=== PATIENT | female | born 1985 | race Caucasian/White ===

== ENCOUNTER 2018-09-29 13:05 | Emergency (ER) | payer MEDICAID ==
[~2018-09-29] VITALS: Ht 162.6 cm; Wt 79.4 kg
[~2018-09-29 13:05] MED LIST: ALBU6.7H INH; CYCL-1 PO; IBUP-1051 PO; IBUP-1984 PO; METH4TAB3 PO; NO HOME MEDS
[2018-09-29 13:14] VITALS: BP 123/77
[2018-09-29] MEDS ORDERED: ALBU18HF2 INH (13:36)
[2018-09-29] MEDS ORDERED: GUAI1TBM19 PO (13:36)
[2018-09-29] MEDS ORDERED: DEC4T PO (13:36)
== END 2018-09-29 13:48 | disposition home or self-care (01) ==
LOC: ER 13:05
DX: J06.9 Acute upper respiratory infection, unspecified (principal); R51 Headache; F17.200 Nicotine dependence, unspecified, uncomplicated; Z79.899 Other long term (current) drug therapy; Z87.442 Personal history of urinary calculi; Z56.0 Unemployment, unspecified
CPT/HCPCS: 99283

== ENCOUNTER 2018-11-19 20:17 | Emergency (ER) | payer MEDICAID ==
[~2018-11-19] VITALS: Ht 165.1 cm; Wt 70.0 kg
[~2018-11-19 20:17] MED LIST changes: +ALBU18HF2 INH; +DEC4T PO; +GUAI1TBM19 PO
[2018-11-19 20:30] VITALS: BP 133/85
[2018-11-19] MEDS ORDERED: ketorolac trometh inj. 60 MG/2 ML VIAL IM ONE (22:25)
== END 2018-11-19 22:33 | disposition home or self-care (01) ==
LOC: ER 20:18
DX: R51 Headache (principal); R20.2 Paresthesia of skin; R20.0 Anesthesia of skin; F17.200 Nicotine dependence, unspecified, uncomplicated; Z87.442 Personal history of urinary calculi; Z56.0 Unemployment, unspecified; Z98.890 Other specified postprocedural states; Z79.899 Other long term (current) drug therapy
CPT/HCPCS: 96372; 99283; J1885

== ENCOUNTER 2020-07-17 18:39 | Emergency (ER) | payer MEDICAID, OTHER ==
[~2020-07-17] VITALS: Ht 165.1 cm; Wt 72.7 kg
[~2020-07-17 18:39] MED LIST changes: -ALBU6.7H INH; +ALBU6.7H9 INH
[2020-07-17 18:41] VITALS: BP 136/72
== END 2020-07-17 20:50 | disposition home or self-care (01) ==
LOC: ER 18:40
DX: M25.571 Pain in right ankle and joints of right foot (principal); M79.671 Pain in right foot; Z87.442 Personal history of urinary calculi; Z98.890 Other specified postprocedural states; Z72.89 Other problems related to lifestyle; Z56.0 Unemployment, unspecified; Z79.899 Other long term (current) drug therapy
CPT/HCPCS: 73610; 73630; 99284

== ENCOUNTER 2022-11-14 09:04 | Emergency (ER) | payer SELFPAY ==
[~2022-11-14] VITALS: Ht 165.1 cm; Wt 63.6 kg
[~2022-11-14 09:04] MED LIST changes: +ALBU6.7H14 INH; -ALBU6.7H9 INH
[2022-11-14 10:19] LABS: BASOPHILS # (AUTO) 0.1 X10'3 (0-0.2); BASOPHILS % (AUTO) 0.5 % (0-1); EOSINOPHILS # (AUTO) 0.1 X10'3 (0-0.9); HEMATOCRIT 45.3 % (35.0-45.0); HEMOGLOBIN 15.3 g/dl (12.0-16.0); LYMPHOCYTES # (AUTO) 1.7 X10'3 (1.1-4.8); LYMPHOCYTES % (AUTO) 15.9 % (21-51); MEAN CORPUSCULAR HEMOGLOBIN 32.1 PG (27.0-31.0); MEAN CORPUSCULAR HGB CONC 33.7 g/dL (33.0-36.5); MEAN CORPUSCULAR VOLUME 95.3 FL (78-98); MEAN PLATELET VOLUME 9.2 FL (7.4-10.4); MONOCYTES # (AUTO) 0.7 X10'3 (0-0.9); NEUTROPHILS # (AUTO) 8.1 X10'3 (1.8-7.7); NEUTROPHILS % (AUTO) 75.6 % (42-75); PLATELET COUNT 210 X10'3 (140-440); RED BLOOD COUNT 4.76 X10'6 (4.20-5.60); RED CELL DISTRIBUTION WIDTH 14.5 % (11.5-14.5); WHITE BLOOD COUNT 10.7 X10'3 (4.5-11.0)
[2022-11-14 10:22] LABS: URINE HCG NEGATIVE (NEG)
[2022-11-14 10:24] LABS: CLARITY,URINE CLEAR (Clear); COLOR,URINE YELLOW (Yellow); GLUCOSE, URINE NEGATIVE (Neg); KETONES,URINE NEGATIVE (Neg); LEUKOCYTE ESTERASE ,URINE MODERATE (Neg); NITRITES, URINE NEGATIVE (Neg); OCCULT BLOOD,URINE MODERATE (Neg); PROTEIN,URINE NEGATIVE (Neg); UROBILINOGEN,URINE 0.2 E.U/dL (0.2-1.0)
[2022-11-14 10:26] LABS: UA COLLECTION TYPE CLN CATCH MIDSTREAM
[2022-11-14 10:28] LABS: ALANINE AMINOTRANSFERASE 9 U/L (12-78); ALBUMIN 3.8 G/DL (3.4-5.0); ALKALINE PHOSPHATASE 53 IU/L (46-116); ANION GAP 8 (8-16); ASPARTATE AMINO TRANSFERASE 11 U/L (10-37); BILIRUBIN,TOTAL 0.6 MG/DL (0.1-1.0); BLOOD UREA NITROGEN 9 MG/DL (7-18); BUN/CREATININE RATIO 10.5 (10.0-20.0); CALCIUM 9.2 MG/DL (8.5-10.1); CHLORIDE 103 MMOL/L (99-107); CREATININE 0.86 MG/DL (0.40-0.90); GLUCOSE 103 MG/DL (70-104); LIPASE < 50 U/L (73-393); POTASSIUM 4.2 MMOL/L (3.5-5.1); SODIUM 139 MMOL/L (135-145); TOTAL CARBON DIOXIDE 27.7 MMOL/L (24-32); TOTAL PROTEIN 7.6 G/DL (6.4-8.2); eGFR 74 ML/MIN
[2022-11-14 10:40] LABS: BACTERIA,URINE 1+ /HPF (Neg); SQUAMOUS EPITHELIAL CELL,UR FEW /LPF (FEW); WBC,URINE TNTC /HPF (0-4)
[2022-11-14 12:43] VITALS: BP 111/79
[2022-11-14] MEDS ORDERED: CEPH-585 PO (13:39)
[2022-11-14] MEDS ORDERED: cephalexin 250mg capsule PO ONE (13:40)
[2022-11-14] MEDS ORDERED: acetaminophen 325mg tablet PO ONE (13:40)
[2022-11-14] MEDS ORDERED: ibuprofen tablet 400 MG TABLET PO ONE (13:40)
[2022-11-14] MEDS ORDERED: ibuprofen 200mg tablet PO ONE (14:20)
== END 2022-11-14 14:41 | disposition home or self-care (01) ==
LOC: ER 09:05
DX: N39.0 Urinary tract infection, site not specified (principal); Z98.890 Other specified postprocedural states; Z56.0 Unemployment, unspecified
CPT/HCPCS: 36415; 74176; 80053; 81001; 81025; 83690; 85025; 87088; 99284

== ENCOUNTER 2023-05-16 08:41 | Emergency (ER) | payer OTHER ==
[~2023-05-16] VITALS: Ht 165.1 cm; Wt 68.6 kg
[2023-05-16 08:49] VITALS: TEMP 97.8
[2023-05-16 09:13] LABS: BILIRUBIN,URINE NEGATIVE (Neg); CLARITY,URINE CLEAR (Clear); COLOR,URINE YELLOW (Yellow); GLUCOSE, URINE NEGATIVE (Neg); KETONES,URINE NEGATIVE (Neg); LEUKOCYTE ESTERASE ,URINE NEGATIVE (Neg); NITRITES, URINE NEGATIVE (Neg); OCCULT BLOOD,URINE LARGE (Neg); PROTEIN,URINE NEGATIVE (Neg); UROBILINOGEN,URINE 0.2 E.U/dL (0.2-1.0)
[2023-05-16 09:18] LABS: UA COLLECTION TYPE CLN CATCH MIDSTREAM
[2023-05-16 09:19] LABS: URINE HCG NEGATIVE (NEG)
[2023-05-16 09:21] LABS: BACTERIA,URINE NONE SEEN /HPF (Neg); MUCUS STRANDS NONE SEEN /LPF (Neg); RBC,URINE 0-2 /HPF (0-2); SQUAMOUS EPITHELIAL CELL,UR NONE SEEN /LPF (FEW); WBC,URINE NONE SEEN /HPF (0-4)
[2023-05-16] MEDS ORDERED: ketorolac trometh inj. 60 MG/2 ML VIAL IM ONE (10:15)
[2023-05-16 10:49] VITALS: BP 114/69; PULSE 72; O2SAT 100
[2023-05-16 11:30] VITALS: RESP 18
== END 2023-05-16 11:45 | disposition home or self-care (01) ==
LOC: ER 08:42
DX: R10.9 Unspecified abdominal pain (principal); R31.9 Hematuria, unspecified
CPT/HCPCS: 74176; 81001; 81025; 96372; 99285; J1885

== ENCOUNTER 2023-10-31 11:17 | Emergency (ER) | payer OTHER ==
[~2023-10-31] VITALS: Ht 165.1 cm; Wt 75.0 kg
[2023-10-31 11:23] VITALS: BP 123/65; PULSE 86; RESP 16; TEMP 98.8; O2SAT 98
[2023-10-31] MEDS: dicyclomine 10 MG capsule PO ONE (12:24)
[2023-10-31] MEDS: ondansetron 4mg rapidly disintigrating tab PO ONE (12:25)
[2023-10-31 12:37] LABS: BILIRUBIN,URINE NEGATIVE (Neg); CLARITY,URINE CLOUDY (Clear); COLOR,URINE STRAW (Yellow); GLUCOSE, URINE NEGATIVE (Neg); KETONES,URINE NEGATIVE (Neg); LEUKOCYTE ESTERASE ,URINE MODERATE (Neg); NITRITES, URINE NEGATIVE (Neg); OCCULT BLOOD,URINE NEGATIVE (Neg); PROTEIN,URINE NEGATIVE (Neg); UROBILINOGEN,URINE 0.2 E.U/dL (0.2-1.0)
[2023-10-31 12:44] LABS: UA COLLECTION TYPE CLN CATCH MIDSTREAM
[2023-10-31 12:46] LABS: BACTERIA,URINE 1+ /HPF (Neg); SQUAMOUS EPITHELIAL CELL,UR MANY /LPF (FEW); WBC,URINE 0-4 /HPF (0-4)
[2023-10-31 12:54] LABS: BASOPHILS # (AUTO) 0.1 X10'3 (0-0.2); BASOPHILS % (AUTO) 0.8 % (0-1); EOSINOPHILS # (AUTO) 0.1 X10'3 (0-0.9); EOSINOPHILS % (AUTO) 0.8 % (0-6); LYMPHOCYTES # (AUTO) 2.3 X10'3 (1.1-4.8); LYMPHOCYTES % (AUTO) 23.6 % (21-51); MEAN CORPUSCULAR HEMOGLOBIN 31.6 PG (27.0-31.0); MEAN CORPUSCULAR HGB CONC 33.5 g/dL (33.0-36.5); MEAN CORPUSCULAR VOLUME 94.5 FL (78-98); MEAN PLATELET VOLUME 9.5 FL (7.4-10.4); MONOCYTES # (AUTO) 0.5 X10'3 (0-0.9); MONOCYTES % (AUTO) 5.6 % (2-12); NEUTROPHILS # (AUTO) 6.6 X10'3 (1.8-7.7); NEUTROPHILS % (AUTO) 69.2 % (42-75); PLATELET COUNT 186 X10'3 (140-440); RED BLOOD COUNT 4.44 X10'6 (4.20-5.60); RED CELL DISTRIBUTION WIDTH 14.6 % (11.5-14.5); WHITE BLOOD COUNT 9.6 X10'3 (4.5-11.0)
[2023-10-31 13:16] LABS: ALANINE AMINOTRANSFERASE 21 U/L (12-78); ALBUMIN 3.1 G/DL (3.4-5.0); ALBUMIN/GLOBULIN RATIO 0.9 (1.1-1.5); ALKALINE PHOSPHATASE 43 IU/L (46-116); ANION GAP 8 (8-16); ASPARTATE AMINO TRANSFERASE 16 U/L (10-37); BILIRUBIN,TOTAL 0.5 MG/DL (0.1-1.0); BLOOD UREA NITROGEN 7 MG/DL (7-18); BUN/CREATININE RATIO 7.5 (10.0-20.0); CALCIUM 8.8 MG/DL (8.5-10.1); CHLORIDE 105 MMOL/L (99-107); CREATININE 0.93 MG/DL (0.40-0.90); GLUCOSE 83 MG/DL (70-104); POTASSIUM 4.1 MMOL/L (3.5-5.1); SODIUM 139 MMOL/L (135-145); TOTAL CARBON DIOXIDE 26.3 MMOL/L (24-32); TOTAL PROTEIN 6.7 G/DL (6.4-8.2); eCRCL 73 ML/MIN; eGFR 67 ML/MIN
[2023-10-31 13:24] LABS: LIPASE 15 U/L (16-77)
[2023-10-31 13:38] LABS: BETA HCG,QUANTITATIVE < 1.0 mIU/ml
[2023-10-31] MEDS ORDERED: OMEP40CA21 PO (13:41)
[2023-10-31] MEDS ORDERED: ONDA8TAB13 PO (13:41)
[2023-10-31] MEDS ORDERED: DICY20TA17 PO (13:42)
== END 2023-10-31 13:45 | disposition home or self-care (01) ==
LOC: ER 11:17
DX: R10.13 Epigastric pain (principal); R10.12 Left upper quadrant pain; R11.0 Nausea; Z72.89 Other problems related to lifestyle; Z56.0 Unemployment, unspecified; Z98.891 History of uterine scar from previous surgery; Z87.442 Personal history of urinary calculi; Z88.1 Allergy status to other antibiotic agents; Z79.899 Other long term (current) drug therapy
CPT/HCPCS: 36415; 76700; 80053; 81001; 83690; 84702; 85025; 99284

== ENCOUNTER → 2024-06-19 | Emergency (ER) | payer OTHER ==
[~2024-06-19] VITALS: Ht 165.1 cm; Wt 79.7 kg
[~2024-06-19] MED LIST changes: +DICY20TA17 PO; +HYDR-3965 PO; +IBUP-862 PO; +ONDA-245 PO
[2024-06-19 16:10] VITALS: BP 136/83; PULSE 78; RESP 16; O2SAT 100
[2024-06-19 17:05] VITALS: TEMP 98
== END | disposition home or self-care (01) ==
LOC: ER 16:03
DX: M25.512 Pain in left shoulder (principal); Z88.5 Allergy status to narcotic agent; Z88.0 Allergy status to penicillin; Z98.890 Other specified postprocedural states
CPT/HCPCS: 73030; 99283; A4565